=== PATIENT | female | born 1965 | race Caucasian/White ===

== ENCOUNTER → 2017-03-18 | Outpatient (CLI) | payer BC ==
--- NOTE | 2017-03-18 10:23 | MM ---
Reason for exam: additional evaluation requested from prior study. Last mammogram was performed 10 months ago. History: Patient has history of other cancer at age 48. Family history of breast cancer in maternal grandmother at age 60 and breast cancer in maternal aunt at age 60. Benign left mammotome panel of the left breast, June 11, 2011. Excisional biopsy of the left breast, January 12, 2008. Benign left mammotome panel of the left breast, December 29, 2007. Took hormonal contraceptives for 10 years beginning at age 18. Physical Findings: Nurse Summary: 1cm nodule in the left breast at 4 o'clock (nurse rm). MG Diagnostic Mammo w CAD ASA Bilateral CC and MLO view(s) were taken. Prior study comparison: May 14, 2016, bilateral MG 3d diag mammo w/cad ASA. May 09, 2015, bilateral MG diagnostic mammo w CAD ASA. April 12, 2014, bilateral MG diagnostic mammo w CAD ASA. February 26, 2013, CAD bilateral diagnostic mammogram. There are scattered fibroglandular densities. Palpable marker lateral left breast. Adjacent fat necrosis calcifications is unchanged. Asymmetric density posterior left breast just above the retroareolar plane. This becomes less defined on additional views. These results were verbally communicated with the patient and result sheet given to the patient on 03/18/17. ASSESSMENT: Incomplete: need additional imaging evaluation, BI-RAD 0 RECOMMENDATION: Ultrasound of the left breast.
--- NOTE | 2017-03-18 10:26 | USB ---
Reason for exam: additional evaluation requested from abnormal screening. History: Patient has history of other cancer at age 48. Family history of breast cancer in maternal grandmother at age 60 and breast cancer in maternal aunt at age 60. Benign left mammotome panel of the left breast, June 11, 2011. Excisional biopsy of the left breast, January 12, 2008. Benign left mammotome panel of the left breast, December 29, 2007. Took hormonal contraceptives for 10 years beginning at age 18. US Breast LT Left breast ultrasound includes all four quadrants, the retroareolar region and axilla. Finding demonstrates no cystic or solid lesion seen. The mammographic finding can be reassessed in 6 months. These results were verbally communicated with the patient and result sheet given to the patient on 03/18/17. ASSESSMENT: Probably benign, BI-RAD 3 RECOMMENDATION: Follow-up diagnostic mammogram of the left breast in 6 months. Manage on a clinical basis with regard to any suspicious palpable areas.
== END | disposition home or self-care (01) ==
LOC: RADMAMWWP 08:56
PROVIDERS: ATTEND Obstetrics & Gynecology
DX: R92.2 Inconclusive mammogram (principal); N64.4 Mastodynia; N60.09 Solitary cyst of unspecified breast
CPT/HCPCS: 76641; G0204

== ENCOUNTER → 2017-12-29 | Outpatient (CLI) | payer BC ==
--- NOTE | 2017-12-30 08:14 | MM ---
Reason for exam: follow-up at short interval from prior study. Last mammogram was performed 9 months ago. History: Patient has history of other cancer at age 48. Family history of breast cancer in maternal grandmother at age 60 and breast cancer in maternal aunt at age 60. Benign left mammotome panel of the left breast, June 11, 2011. Excisional biopsy of the left breast, January 12, 2008. Benign left mammotome panel of the left breast, December 29, 2007. Took hormonal contraceptives for 10 years beginning at age 18. Physical Findings: Nurse did not find any significant physical abnormalities on exam. MG 3D Diag Mammo W/Cad LT CC, MLO, and XCCL view(s) were taken of the left breast. Prior study comparison: March 18, 2017, bilateral MG diagnostic mammo w CAD ASA. May 14, 2016, bilateral MG 3d diag mammo w/cad ASA. The breast tissue is heterogeneously dense. This may lower the sensitivity of mammography. The previously seen left upper outer quadrant focal asymmetry is stable from the prior and appears as fibroglandular tissue. Precautionary 6 month follow up will be performed. These results were verbally communicated with the patient and result sheet given to the patient on 12/29/17. ASSESSMENT: Probably benign, BI-RAD 3 RECOMMENDATION: Follow-up diagnostic mammogram of both breasts in 6 months.
== END | disposition home or self-care (01) ==
LOC: RADMAMWWP 15:27
PROVIDERS: ATTEND Obstetrics & Gynecology
DX: R92.8 Other abnormal and inconclusive findings on diagnostic imaging of breast (principal)
CPT/HCPCS: 77065; G0279

== ENCOUNTER → 2018-03-17 | Outpatient (CLI) | payer BC ==
[2018-03-17 08:26] LABS: Blood Urea Nitrogen 11 mg/dL (7-17)
--- NOTE | 2018-03-17 09:22 | CT ---
EXAMINATION TYPE: CT abdomen wo/w con DATE OF EXAM: 03/17/2018 COMPARISON: 03/28/2015 HISTORY: Malignant neoplasm of Left Kidney CT DLP: 1930.9 mGycm Automated exposure control for dose reduction was used. TECHNIQUE: Helical acquisition of images was performed from the lung bases through the top of iliac crest to include entire abdomen. CONTRAST: Performed with Oral Contrast and without and with IV Contrast, patient injected with 100 mL of Isovue 300. FINDINGS: LUNG BASES: No significant abnormality is appreciated. LIVER/GB: No significant abnormality is appreciated. The gallbladder is surgically absent. PANCREAS: No significant abnormality is seen. SPLEEN: No significant abnormality is seen. ADRENALS: No significant abnormality is seen. KIDNEYS: Partial left lower pole nephrectomy is present and unchanged. No evidence for residual or re current mass. Small adjacent focal area of fat unchanged from prior study. No solid renal mass is det ected at this time. 5 mm cortical cyst upper pole left kidney and lower pole left kidney. No evidence for nephrolithiasis or hydronephrosis. Visualized portions of the renal collecting systems are gross ly unremarkable. BOWEL: No significant abnormality is seen. LYMPH NODES: No significant abnormality is seen. OSSEOUS STRUCTURES: No significant abnormality is seen. FREE AIR: No free air is visualized. IMPRESSION: 1. No evidence for recurrent or residual mass in a patient who is status post removal of left lower p ole renal lesion.
== END | disposition home or self-care (01) ==
LOC: RADCTMAIN 07:45
PROVIDERS: ATTEND Urology
DX: C64.2 Malignant neoplasm of left kidney, except renal pelvis (principal)
CPT/HCPCS: 82565; 84520; 74170; 36415; Q9967

== ENCOUNTER → 2018-11-10 | Outpatient (CLI) | payer BC ==
--- NOTE | 2018-11-10 10:10 | MM ---
Reason for exam: additional evaluation requested from prior study. Last mammogram was performed 10 months ago. History: Patient has history of other cancer at age 48. Family history of breast cancer in maternal grandmother at age 60 and breast cancer in maternal aunt at age 60. Benign left mammotome panel of the left breast, June 11, 2011. Excisional biopsy of the left breast, January 12, 2008. Benign left mammotome panel of the left breast, December 29, 2007. Took hormonal contraceptives for 10 years beginning at age 18. Physical Findings: Nurse did not find any significant physical abnormalities on exam. MG 3D Diag Mammo W/Cad ASA Bilateral CC and MLO view(s) were taken. Prior study comparison: December 29, 2017, left breast MG 3d diag mammo w/cad LT. March 18, 2017, bilateral MG diagnostic mammo w CAD ASA. Previous mammotome biopsy in the left breast. No significant new findings when compared with previous films. These results were verbally communicated with the patient and result sheet given to the patient on 11/10/18. ASSESSMENT: Benign, BI-RAD 2 RECOMMENDATION: Routine screening mammogram of both breasts in 1 year.
== END | disposition home or self-care (01) ==
LOC: RADMAMWWP 09:25
PROVIDERS: ATTEND Obstetrics & Gynecology
DX: R92.8 Other abnormal and inconclusive findings on diagnostic imaging of breast (principal)
CPT/HCPCS: 77062; 77066

== ENCOUNTER → 2019-11-16 | Outpatient (CLI) | payer BC ==
--- NOTE | 2019-11-19 10:39 | MM ---
Reason for exam: screening (asymptomatic). Last mammogram was performed 1 year ago. History: Patient has history of other cancer at age 48. Family history of breast cancer in maternal grandmother at age 60 and breast cancer in maternal aunt at age 60. Benign left mammotome panel of the left breast, June 11, 2011. Excisional biopsy of the left breast, January 12, 2008. Benign left mammotome panel of the left breast, December 29, 2007. Took hormonal contraceptives for 10 years beginning at age 18. Physical Findings: A clinical breast exam by your physician is recommended on an annual basis and results should be correlated with mammographic findings. MG 3D Screening Mammo W/Cad Bilateral CC and MLO view(s) were taken. Prior study comparison: November 10, 2018, bilateral MG 3d diag mammo w/cad ASA. December 29, 2017, left breast MG 3d diag mammo w/cad LT. There are scattered fibroglandular densities. Stable benign calcifications left breast. There is no discrete abnormality. No significant changes when compared with prior studies. ASSESSMENT: Benign, BI-RAD 2 RECOMMENDATION: Routine screening mammogram of both breasts in 1 year.
== END | disposition home or self-care (01) ==
LOC: RADMAMWWP 09:21
PROVIDERS: ATTEND Obstetrics & Gynecology
DX: Z12.31 Encounter for screening mammogram for malignant neoplasm of breast (principal); Z80.3 Family history of malignant neoplasm of breast
CPT/HCPCS: 77063; 77067

== ENCOUNTER → 2020-12-05 | Outpatient (CLI) | payer BC ==
--- NOTE | 2020-12-09 08:50 | MM ---
Reason for exam: screening (asymptomatic). Last mammogram was performed 1 year and 1 month ago. History: Patient has history of other cancer at age 48. Family history of breast cancer in maternal grandmother at age 60 and breast cancer in maternal aunt at age 60. Benign left mammotome panel of the left breast, June 11, 2011. Excisional biopsy of the left breast, January 12, 2008. Benign left mammotome panel of the left breast, December 29, 2007. Took hormonal contraceptives for 10 years beginning at age 18. Physical Findings: A clinical breast exam by your physician is recommended on an annual basis and results should be correlated with mammographic findings. MG 3D Screening Mammo W/Cad Bilateral CC, MLO, and XCCL view(s) were taken. Prior study comparison: November 16, 2019, bilateral MG 3d screening mammo w/cad. November 10, 2018, bilateral MG 3d diag mammo w/cad ASA. There are scattered fibroglandular densities. Previous mammotome biopsy in the left breast. There is chronic nodularity in the right breast posterior upper outer quadrant. Anterior left 12 o'clock focal asymmetry is unchanged. Fat necrosis calcifications centrally on the left. No significant changes when compared with prior studies. ASSESSMENT: Benign, BI-RAD 2 RECOMMENDATION: Routine screening mammogram of both breasts in 1 year.
== END | disposition home or self-care (01) ==
LOC: RADMAMWWP 14:45
PROVIDERS: ATTEND Obstetrics & Gynecology
DX: Z12.31 Encounter for screening mammogram for malignant neoplasm of breast (principal); Z80.3 Family history of malignant neoplasm of breast
CPT/HCPCS: 77063; 77067

== ENCOUNTER → 2021-12-11 | Outpatient (CLI) | payer BC ==
--- NOTE | 2021-12-14 12:05 | MM ---
Reason for exam: screening (asymptomatic). Last mammogram was performed 1 year ago. History: Patient has history of other cancer at age 48. Family history of breast cancer in maternal grandmother at age 60 and breast cancer in maternal aunt at age 60. Benign left mammotome panel of the left breast, June 11, 2011. Excisional biopsy of the left breast, January 12, 2008. Benign left mammotome panel of the left breast, December 29, 2007. Took hormonal contraceptives for 10 years beginning at age 18. Physical Findings: A clinical breast exam by your physician is recommended on an annual basis and results should be correlated with mammographic findings. MG 3D Screening Mammo W/Cad Bilateral CC and MLO view(s) were taken. Prior study comparison: December 05, 2020, bilateral MG 3d screening mammo w/cad. November 16, 2019, bilateral MG 3d screening mammo w/cad. There are scattered fibroglandular densities. Post surgical changes left breast. No significant changes when compared with prior studies. ASSESSMENT: Benign, BI-RAD 2 RECOMMENDATION: Routine screening mammogram of both breasts in 1 year.
== END | disposition home or self-care (01) ==
LOC: RADMAMWWP 09:48
PROVIDERS: ATTEND Obstetrics & Gynecology
DX: Z12.31 Encounter for screening mammogram for malignant neoplasm of breast (principal); Z80.3 Family history of malignant neoplasm of breast
CPT/HCPCS: 77063; 77067

== ENCOUNTER → 2022-12-17 | Outpatient (CLI) | payer BC ==
--- NOTE | 2022-12-20 09:02 | MM ---
Reason for Exam: Screening (asymptomatic). Last screening mammogram was performed 12 month(s) ago. Patient History: Menarche at age 16. First Full-Term at age 25. Postmenopausal. Patient has history of breast feeding. Other cancer, age 48. Hormonal Contraceptives, starting at age 18 for 10 years. 01/12/2008, Excisional Biopsy on the Left side. 06/11/2011, Benign Core Biopsy on the left side. 12/29/2007, Benign Core Biopsy on the left side. Maternal grandmother had breast cancer, age 60. Maternal aunt had breast cancer, age 60. Risk Values: Sandi 5 year model risk: 1.4%. NCI Lifetime model risk: 10.0%. Prior Study Comparison: 11/16/2019 Bilateral Screening Mammogram, [facility]. 12/05/2020 Bilateral Screening Mammogram, [facility]. 12/11/2021 Bilateral Screening Mammogram, [facility]. Tissue Density: There are scattered fibroglandular densities. Findings: Analyzed By CAD. Stable biopsy clip with focal distortion and dystrophic calcifications in the left breast. Benign-appearing bilateral axillary lymph nodes are redemonstrated. There is no suspicious new group of microcalcifications or new suspicious mass in either breast. Overall Assessment: Benign, BI-RAD 2 Management: Screening Mammogram of both breasts in 1 year. A clinical breast exam by your physician is recommended on an annual basis and results should be correlated with mammographic findings. Electronically signed and approved by: Boris Stephens M.D.
== END | disposition home or self-care (01) ==
LOC: RADMAMWWP 09:47
PROVIDERS: ATTEND Obstetrics & Gynecology
DX: Z12.31 Encounter for screening mammogram for malignant neoplasm of breast (principal); Z78.0 Asymptomatic menopausal state; Z80.3 Family history of malignant neoplasm of breast
CPT/HCPCS: 77063; 77067

== ENCOUNTER 2023-08-02 06:04 | Emergency (ER) | payer BC ==
[2023-08-02 06:09] VITALS: BP 164/103; PULSE 86; RESP 18; TEMP 97.9
[2023-08-02] MEDS ORDERED: LIDOCAINE 1% INJ 10MG/ML (20 ML MDV) SQ ONE (06:19)
[2023-08-02] MEDS ORDERED: GELATIN SPONGE,ABSORB (SMALL) 1 EACH SPONGE TOPICAL STA (06:25)
--- NOTE | 2023-08-02 06:27 | ED ---
Skin/Abscess/FB HPI - General Chief complaint: Skin/Abscess/Foreign Body Stated complaint: Finger Lac Time Seen by Provider: 08/02/23 06:19 Source: patient, RN notes reviewed Mode of arrival: ambulatory Limitations: no limitations - History of Present Illness Initial comments: 57-year-old female presents emergency Department chief complaint of finger lac eration. Patient states that she was cutting bread yesterday and cut the tip of her finger. Patient states that she did not wince subsided but started bleeding again this morning her tetanus is up-to-date. Patient offers no complaints. - Related Data Home Medications Medication Instructions Recorded Confirmed Levothyroxine Sodium [Synthroid] 100 mcg PO QAM 03/19/15 03/21/15 Allergies Allergy/AdvReac Type Severity Reaction Status Date / Time No Known Allergies Allergy Verified 08/02/23 06:09 Review of Systems ROS Statement: Those systems with pertinent positive or pertinent negative responses have been documented in the HPI. ROS Other: All systems not noted in ROS Statement are negative. Past Medical History Past Medical History: Thyroid Disorder Additional Past Medical History / Comment(s): HX LT KIDNEY CA, HEAVY MENSES History of Any Multi-Drug Resistant Organisms: None Reported Past Surgical History: Cholecystectomy Additional Past Surgical History / Comment(s): LT PARTIAL KIDNEY REMOVED, D&C Past Anesthesia/Blood Transfusion Reactions: No Reported Reaction Past Psychological History: No Psychological Hx Reported Smoking Status: Former smoker Past Alcohol Use History: Occasional Past Drug Use History: None Reported - Past Family History Mother Family Medical History: No Reported History Father Additional Family Medical History / Comment(s): UNKNOWN HX General Exam Limitations: no limitations General appearance: alert, in no apparent distress Head exam: Present: atraumatic, normocephalic, normal inspection Respiratory exam: Present: normal lung sounds bilaterally. Absent: respiratory distress, wheezes, rales, rhonchi, stridor Cardiovascular Exam: Present: regular rate, normal rhythm, normal heart sounds. Absent: systolic murmur, diastolic murmur, rubs, gallop, clicks Extremities exam: Present: other (Left second digit distal tip there is a skin avulsion noted minimal bleeding) Course Vital Signs 08/02/23 06:07 Temperature 97.9 F Pulse Rate 86 Respiratory 18 Rate Blood Pressure 164/103 O2 Sat by Pulse 98 Oximetry Medical Decision Making - Medical Decision Making Was pt. sent in by a medical professional or institution (YOON Davey, DATA ARCHITECT MANAGER, urgent care, hospital, or long term...) When possible be specific @ -No Did you speak to anyone other than the patient for history (EMS, parent, family, police, friend...)? What history was obtained from this source @ -No Did you review nursing and triage notes (agree or disagree)? Why? @ -I reviewed and agree with nursing and triage notes Were old charts reviewed (outside hosp., previous admission, EMS record, old EKG, old radiological studies, urgent care reports/EKG's, long term records)? Report findings @ -No old charts were reviewed Differential Diagnosis (chest pain, altered mental status, abdominal pain women, abdominal pain men, vaginal bleeding, weakness, fever, dyspnea, syncope, headache, dizziness, GI bleed, back pain, seizure, CVA, palpatations, mental health, musculoskeletal)? @ -Finger laceration, skin avulsion EKG interpreted by me (3pts min.). @ -None X-rays interpreted by me (1pt min.). @ -None done CT interpreted by me (1pt min.). @ -None done U/S interpreted by me (1pt. min.). @ -None done What testing was considered but not performed or refused? (CT, X-rays, U/S, labs)? Why? @ -None What meds were considered but not given or refused? Why? @ -None Did you discuss the management of the patient with other professionals (professionals i.e. YOON Davey, DATA ARCHITECT MANAGER, lab, RT, psych nurse, healthcare social worker, track laminating machine tender, teacher, penal officer, housing case manager)? Give summary @ -No Was smoking cessation discussed for >3mins.? @ -No Was critical care preformed (if so, how long)? @ -No Were there social determinants of health that impacted care today? How? (Homelessness, low income, unemployed, alcoholism, drug addiction, transportation, low edu. Level, literacy, decrease access to med. care, snf, rehab)? @ -No Was there de-escalation of care discussed even if they declined (Discuss DNR or withdrawal of care, Hospice)? DNR status @ -No What co-morbidities impacted this encounter? (DM, HTN, Smoking, COPD, CAD, Cancer, CVA, ARF, Chemo, Hep., AIDS, mental health diagnosis, sleep apnea, morbid obesity)? @ -None Was patient admitted / discharged? Hospital course, mention meds given and route, prescriptions, significant lab abnormalities, going to OR and other per tinent info. @ -Discharged Gelfoam was applied, finger was wrapped patient's tetanus up-to-date patient is discharged in stable condition. Undiagnosed new problem with uncertain prognosis? @ -No Drug Therapy requiring intensive monitoring for toxicity (Heparin, Nitro, Insulin, Cardizem)? @ -No Were any procedures done? @ -No Diagnosis/symptom? @ -[Finger skin avulsion Acute, or Chronic, or Acute on Chronic? @ -Acute Uncomplicated (without systemic symptoms) or Complicated (systemic symptoms)? @ -Uncomplicated Side effects of treatment? @ -No Exacerbation, Progression, or Severe Exacerbation? @ -No Poses a threat to life or bodily function? How? (Chest pain, [place], [place], pneumonia, PE, COPD, DKA, ARF, appy, cholecystitis, CVA, Diverticulitis, Homicidal, Suicidal, threat to staff... and all critical care pts) @ -No Disposition Clinical Impression: Avulsion of skin of finger Disposition: HOME SELF-CARE Condition: Stable Instructions (If sedation given, give patient instructions): Skin Avulsion (ED) Additional Instructions: Please return to the Emergency Department if symptoms worsen or any other concerns. Is patient prescribed a controlled substance at d/c from ED?: No Referrals: Michelle Gorman MD [Primary Care Provider] - 1-2 days Time of Disposition: 06:27
== END 2023-08-02 07:01 | disposition home or self-care (01) ==
LOC: EC 06:04
DX: S61.301A Unspecified open wound of left index finger with damage to nail, initial encounter (principal); E07.9 Disorder of thyroid, unspecified; Z79.890 Hormone replacement therapy; Z87.891 Personal history of nicotine dependence; W26.9XXA Contact with unspecified sharp object(s), initial encounter
CPT/HCPCS: 99282; J2001

== ENCOUNTER → 2023-12-23 | Outpatient (CLI) | payer BC ==
--- NOTE | 2023-12-26 09:26 | MM ---
Reason for Exam: Screening (asymptomatic). Last screening mammogram was performed 12 month(s) ago. Patient History: Menarche at age 16. First Full-Term at age 25. Postmenopausal. Patient has history of breast feeding. Other cancer, age 48. Hormonal Contraceptives, starting at age 18 for 10 years. 01/12/2008, Excisional Biopsy on the Left side. 06/11/2011, Benign Core Biopsy on the left side. 12/29/2007, Benign Core Biopsy on the left side. Maternal grandmother had breast cancer, age 60. Maternal aunt had breast cancer, age 60. Risk Values: Sandi 5 year model risk: 1.5%. NCI Lifetime model risk: 9.8%. Prior Study Comparison: 12/29/2017 Left Diagnostic Mammogram, [facility]. 11/10/2018 Bilateral Diagnostic Mammogram, [facility]. 11/16/2019 Bilateral Screening Mammogram, [facility]. 12/05/2020 Bilateral Screening Mammogram, [facility]. 12/11/2021 Bilateral Screening Mammogram, [facility]. 12/17/2022 Bilateral MG 3D screening mammo w/cad, [facility]. Tissue Density: There are scattered fibroglandular densities. Findings: Analyzed By CAD. There is no suspicious group of microcalcifications or new suspicious mass in either breast. Overall Assessment: Benign, BI-RAD 2 Management: Screening Mammogram of both breasts in 1 year. . Patient should continue monthly self-breast exams. A clinical breast exam by your physician is recommended on an annual basis. This exam should not preclude additional follow-up of suspicious palpable abnormalities. Note on Sandi scores and lifetime risk: 1. A Sandi score greater than 3% is considered moderate risk. If this is the case, consider specialist referral to assess eligibility for a risk reducing agent. 2. If overall lifetime risk for the development of breast cancer is 20% or higher, the patient may qualify for future screening with alternating mammogram and breast MRI. Electronically signed and approved by: Ras Wright M.D. Radiologis
== END | disposition home or self-care (01) ==
LOC: RADMAMWWP 09:44
PROVIDERS: ATTEND Obstetrics & Gynecology
DX: Z12.31 Encounter for screening mammogram for malignant neoplasm of breast (principal); Z80.3 Family history of malignant neoplasm of breast; Z78.0 Asymptomatic menopausal state
CPT/HCPCS: 77063; 77067

== ENCOUNTER → 2024-12-28 | Outpatient (CLI) | payer BC ==
--- NOTE | 2024-12-28 10:06 | MM ---
Reason for Exam: Screening (asymptomatic). Last screening mammogram was performed 12 month(s) ago. Patient History: Menarche at age 16. First Full-Term at age 25. Postmenopausal. Patient has history of breast feeding. Other cancer, age 48. Hormonal Contraceptives, starting at age 18 for 10 years. 01/12/2008, Excisional Biopsy on the Left side. 06/11/2011, Benign Core Biopsy on the left side. 12/29/2007, Benign Core Biopsy on the left side. Maternal grandmother had breast cancer, age 60. Maternal aunt had breast cancer, age 60. Risk Values: Sandi 5 year model risk: 1.6%. NCI Lifetime model risk: 9.5%. Prior Study Comparison: 12/11/2021 Bilateral Screening Mammogram, [facility]. 12/17/2022 Bilateral MG 3D screening mammo w/cad, [facility]. 12/23/2023 Bilateral MG 3D screening mammo w/cad, [facility]. Tissue Density: The breasts are almost entirely fatty. Findings: Analyzed By CAD. Right breast: There is no suspicious group of microcalcifications or new suspicious mass. Left breast: There is no suspicious group of microcalcifications or new suspicious mass. Benign-appearing calcifications left breast. Overall Assessment: Benign, BI-RAD 2 Management: Screening Mammogram of both breasts in [address] [facility] will attempt to contact patient to return for supplemental views and ultrasound if indicated. Patient should continue monthly self-breast exams. A clinical breast exam by your physician is recommended on an annual basis. This exam should not preclude additional follow-up of suspicious palpable abnormalities. Note on Sandi scores and lifetime risk: 1. A Sandi score greater than 3% is considered moderate risk. If this is the case, consider specialist referral to assess eligibility for a risk reducing agent. 2. If overall lifetime risk for the development of breast cancer is 20% or higher, the patient may qualify for future screening with alternating mammogram and breast MRI. [facility], , 12/28/2024 9:59 AM. Electronically signed and approved by: Burke Acevedo DO
== END | disposition home or self-care (01) ==
LOC: RADMAMWWP 09:27
PROVIDERS: ATTEND Obstetrics & Gynecology
DX: Z12.31 Encounter for screening mammogram for malignant neoplasm of breast (principal); R92.313 Mammographic fatty tissue density, bilateral breasts; R92.1 Mammographic calcification found on diagnostic imaging of breast; Z78.0 Asymptomatic menopausal state; Z80.3 Family history of malignant neoplasm of breast
CPT/HCPCS: 77063; 77067